=== PATIENT | female | born 1960 | race Caucasian/White ===

== ENCOUNTER 2022-04-15 11:12 | Emergency (ER) | payer OTHER ==
[~2022-04-15] VITALS: Ht 154.9 cm; Wt 65.8 kg
--- NOTE | 2022-04-15 11:12 | NUR ---
To ER bed 1B, endorsed to primary ER nurse Fer Urbina
[2022-04-15] MEDS ORDERED: PRAVASTATIN PO (11:30)
--- NOTE | 2022-04-15 11:40 | NUR ---
Provided pillow for support of pt's wrist
--- NOTE | 2022-04-15 11:47 | NUR ---
Eveline castromarco in ED - 04/15/22 at 1202 by [email or web address] Pt wanted to go home AMA. Phillips explained to pt that since her Blood alcohol level was so high, she could could not go on her own, but could have a relative pick her up. Pt twice tried to leave but staff and security disuaded her. She is trying to make arrangements for pick-up.
--- NOTE | 2022-04-15 12:12 | NUR ---
"Plan to admit" per Dr Salmon. ER registration/admitting staff Carol and Teresa notified.
[2022-04-15 12:24] LABS: MEAN CORPUSCULAR HEMOGLOBIN 28.3 uug (24.7-32.8); MEAN CORPUSCULAR VOLUME 86.3 fL (75.5-95.3); PLATELET COUNT (AUTO) 326 K/uL (179-408)
[2022-04-15] MEDS ORDERED: MORPHINE SULFATE 4 MG/1 ML DISP.SYRIN IV ONE (12:30)
[2022-04-15] MEDS ORDERED: ONDANSETRON 4 MG/2 ML VIAL IV ONE (12:30)
[2022-04-15 12:37] LABS: CREATININE 0.7 mg/dL (0.6-1.3); POTASSIUM 4.4 mmol/L (3.5-5.1)
[2022-04-15] MEDS ORDERED: PRAV10TA40 PO (12:45)
[2022-04-15] MEDS ORDERED: VENL-192 PO (12:45)
[2022-04-15] MEDS ORDERED: ONDANSETRON 4 MG/2 ML VIAL ONE (13:08)
[2022-04-15] MEDS ORDERED: MORPHINE SULFATE 4 MG/1 ML DISP.SYRIN ONE (13:09)
[2022-04-15] MEDS ORDERED: HYDROCODONE/APAP 5-325MG TABLET PO PRN (13:15)
[2022-04-15] MEDS ORDERED: ACETAMINOPHEN 325 MG TABLET PO PRN (13:15)
[2022-04-15] MEDS ORDERED: MAGNESIUM HYDROXIDE 30 ML LIQUID UDC PO PRN (13:15)
[2022-04-15] MEDS ORDERED: ONDANSETRON 4 MG/2 ML VIAL IV PRN (13:15)
[2022-04-15] MEDS ORDERED: REMEDY ESSENTIAL ZINC PASTE 113 GM TP PRN (13:15)
[2022-04-15] MEDS ORDERED: MORPHINE SULFATE 2 MG/1 ML DISP.SYRIN IV PRN (13:15)
--- NOTE | 2022-04-15 13:20 | NUR ---
IV 20g, started right AC.
--- NOTE | 2022-04-15 13:41 | NUR ---
Applied fiberglass sugar-tong split with padding beneath, secured with elastic bandages. PMS intact.
--- NOTE | 2022-04-15 13:50 | NUR ---
applied arm sling to pt left arm.
[2022-04-15] MEDS ORDERED: IBUP-1955 PO (14:24)
[2022-04-15] MEDS ORDERED: HYDR-3972 PO (14:24)
[2022-04-15] MEDS ORDERED: HEPARIN SODIUM,PORCINE 5,000 UNITS/ML VIAL SQ SCH (21:00)
[2022-04-15] MEDS ORDERED: IV NS 1000 ML 1,000 ML IV PRN (21:00)
== END 2022-04-15 14:25 | disposition left against medical advice (07) ==
LOC: ER 11:15
DX: S52.502A Unspecified fracture of the lower end of left radius, initial encounter for closed fracture (principal); W18.30XA Fall on same level, unspecified, initial encounter; Y93.9 Activity, unspecified; Y92.002 Bathroom of unspecified non-institutional (private) residence as the place of occurrence of the external cause; Z20.822 Contact with and (suspected) exposure to COVID-19; Z53.29 Procedure and treatment not carried out because of patient's decision for other reasons; E78.00 Pure hypercholesterolemia, unspecified; F32.A Depression, unspecified; Z79.899 Other long term (current) drug therapy
CPT/HCPCS: 99285; 96374; 71045; 96375; 87426; 80048; 85025; 85730; 36415; 73090; 73110; 29125; 93005; J2405; J2270; A4663